=== PATIENT | male | born 1945 | race African-American/Black ===

== ENCOUNTER 2020-10-04 06:09 | Day surgery (SDC) | payer OTHER ==
[~2020-10-04] VITALS: Ht 182.9 cm; Wt 90.0 kg
[~2020-10-04 06:09] MED LIST: ACET325T21 PO; ASPI-630 PO; BRIM5DRO4 OU; BUDE10.2 IH; HYDROmorphone 2 MG/ML VIAL IVP PRN; ISOS30TA68 PO; IV RINGERS,LACTATED 1000ML 1,000 ML IV SCH; LATA7.5D OU; LISI20TA18 PO; MORPHINE SULFATE 2 MG/ML INJ. IVP PRN; NAPR-514 PO; NITR0.4T22 SL; PRAV40TA2 PO; PROCHLORPERAZINE 10 MG/2 ML VIAL. IVP PRN; TAMS0.4C97 PO; TIMO10DR5 OU; VENTOLIN HFA18 GM INH; fentaNYL PF VIAL 100 MCG/2 ML VIAL IVP PRN
[2020-10-04 06:21] VITALS: BP 161/106
[2020-10-04] MEDS ORDERED: BUPIVACAINE MPF 0.25% 30 ML VIAL. ONE (07:12)
[2020-10-04] MEDS ORDERED: ePHEDrine PF IN SALINE 50 MG/10 ML SYRINGE. IV ONE (07:47)
--- NOTE | 2020-10-04 07:47 | DISCH ---
DISCHARGE INSTRUCTIONS Condition on Discharge Condition on Discharge: Stable Activity After Discharge Activity Instructions for Disc: Other, see below (Avoid hard grasp, may do fine motor use such as eating writing typing) Lifting Instructions after Dis: No heavy lifting, No pulling or pushing Weight Bearing Status after Di: Non weight bearing Wound Incision Care Wound/Incision Care: Keep wound elevated, Do not change dressing (Keep dressing intact unless soiled) Contacting the DRManish after DC Call your doctor for: Concerns you may have Follow-Up Follow up with: Dr. Tong or [place] 10 days ADRIANE TONG MD Oct 04, 2020 07:47
[2020-10-04] MEDS ORDERED: fentaNYL PF VIAL 100 MCG/2 ML VIAL ONE ×2 (08:01→08:20)
[2020-10-04] MEDS ORDERED: SEVOFLURANE 16 TO 30 MINUTES. IH ONE (08:01)
--- NOTE | 2020-10-04 08:03 | PDOC4 ---
Operative Note Operative Note Date of surgery: 10/04/2020 Preoperative diagnosis: Right carpal tunnel syndrome Postoperative diagnosis: Same with moderate median nerve compression Operative procedure: Right carpal tunnel release Surgeon: Alycia Dry Dip Worker: Finn clements Anesthesia: General Estimated blood loss: 1 cc Complications: None Operative indications: Please see Mr. Moody orthopedic clinic note for detailed operative indications and note that we covered that this procedure only takes pressure off the compressed nerve and relief may be incomplete as it is dependent on healing. There is also possibility of nerve or blood vessel damage infection medical or other anesthetic complications among others. He agrees to proceed with surgical evaluation and treatment Operative text: Patient was identified procedure verified patient placed in the supine position on the operating table. After adequate amounts of general anesthesia were administered the right upper extremity was prepped and draped in standard sterile fashion with an upper arm tourniquet. After timeout was performed patient procedure identified and verified the right upper extremity was exsanguinated by Esmarch bandage tourniquet inflated to 300 mmHg and a longitudinal incision was made just distal to the distal wrist crease dissection carried out down to the transverse carpal ligament which was divided under direct vision with scalpel and tenotomy scissors. Full release was verified both visually and palpably. Thorough irrigation carried out normal saline solution, incision was closed with nylon suture in vertical mattress fashion. Sterile soft dressings were applied patient was returned to recovery room stable condition having tolerated procedure well. Fingers were noted be warm pink on deflation of the tourniquet. Finn clements assisted in patient positioning prepping draping retraction closure and dressings ADRIANE PRATT MD Oct 04, 2020 08:03
[2020-10-04] MEDS ORDERED: PROCHLORPERAZINE 10 MG/2 ML VIAL. ONE (08:21)
[2020-10-04 08:38] VITALS: BP 134/96
[2020-10-04] MEDS ORDERED: ACETAMINOPHEN 325 MG TABLET. PO ONE (08:55)
[2020-10-04] MEDS ORDERED: LIDOCAINE 2% PF 5 ML VIAL. ONE (08:56)
[2020-10-04] MEDS ORDERED: PROPOFOL 10 MG/ML (20ML) VIAL. IV ONE (08:56)
[2020-10-04] MEDS ORDERED: ONDANSETRON PF 4 MG/2 ML VIAL. ONE (08:56)
[2020-10-04] MEDS ORDERED: DEXAMETHASONE SOD PHOS 4 MG/ML VIAL ONE (08:56)
[2020-10-04] MEDS ORDERED: ACETAMINOPHEN 500 MG TABLET PO PRN (09:00)
== END 2020-10-04 09:02 | disposition home or self-care (01) ==
LOC: SURG 06:09
PROVIDERS: ATTEND Orthopaedic Surgery
DX: G56.01 Carpal tunnel syndrome, right upper limb (principal); I10 Essential (primary) hypertension; E78.00 Pure hypercholesterolemia, unspecified; J44.9 Chronic obstructive pulmonary disease, unspecified; M19.90 Unspecified osteoarthritis, unspecified site; Z79.82 Long term (current) use of aspirin; Z79.899 Other long term (current) drug therapy; Z87.891 Personal history of nicotine dependence; Z98.890 Other specified postprocedural states
CPT/HCPCS: 64721; A4930; J0690; J0780; J1100; J2405; J2704; J3010; J3490; A4657; A6452

== ENCOUNTER 2021-03-27 06:03 | Day surgery (SDC) | payer OTHER ==
[~2021-03-27] VITALS: Ht 182.9 cm; Wt 90.0 kg
[2021-03-27 06:10] VITALS: BP 151/83
[2021-03-27] MEDS ORDERED: fentaNYL PF VIAL 100 MCG/2 ML VIAL ONE (06:59)
[2021-03-27] MEDS ORDERED: LIDOCAINE 1% PF 5 ML VIAL. ONE (06:59)
[2021-03-27] MEDS ORDERED: PROPOFOL 10 MG/ML (20ML) VIAL. IV ONE (06:59)
[2021-03-27] MEDS ORDERED: ONDANSETRON PF 4 MG/2 ML VIAL. ONE ×2 (07:00→07:41)
[2021-03-27] MEDS ORDERED: DEXAMETHASONE SOD PHOS 4 MG/ML VIAL ONE (07:00)
[2021-03-27] MEDS ORDERED: SUCCINYLCHOLINE 200 MG/10 ML VIAL. ONE (07:04)
[2021-03-27] MEDS ORDERED: ROCURONIUM 100 MG/10 ML VIAL. ONE (07:05)
[2021-03-27] MEDS ORDERED: GLYCOPYRROLATE 1 MG/5 ML VIAL. ONE (07:07)
[2021-03-27] MEDS ORDERED: BUPIVACAINE MPF 0.25% 30 ML VIAL. ONE (07:20)
[2021-03-27] MEDS ORDERED: SEVOFLURANE 16 TO 30 MINUTES. IH ONE (07:41)
--- NOTE | 2021-03-27 07:49 | PDOC4 ---
OPERATIVE NOTE Date: Date: Mar 27, 2021 Pre-Op Diagnosis: Carpal tunnel syndrome chronic left Post-Op Diagnosis: Same Procedure Performed: Carpal tunnel release left Surgeon: Lul Anesthesia Type: General Blood Loss: 5 cc Specimans Obtained: None Findings: See dictation Complications: None RYLEY FOURNIER Jr., DO Mar 27, 2021 07:49
--- NOTE | 2021-03-27 07:52 | DISCH ---
DISCHARGE INSTRUCTIONS Condition on Discharge Condition on Discharge: Stable Activity After Discharge Activity Instructions for Disc: Avoid exertion, Other, see below Lifting Instructions after Dis: No heavy lifting, No pulling or pushing, Do not lift >10 pounds Weight Bearing Status after Di: Non weight bearing Wound Incision Care Wound/Incision Care: Keep wound elevated, Do not change dressing Other wound/incision instructi: May change dressings postoperative day #7 Contacting the DRManish after DC Call your doctor for: Concerns you may have Follow-Up Follow up with: 21 days RYLEY FOURNIER Jr. DO Mar 27, 2021 07:52
--- NOTE | 2021-03-27 07:58 | HP ---
DATE OF SERVICE: 03/27/2021 ADMIT DATE: 03/27/2021 HISTORY OF PRESENT ILLNESS: He is a 74-year-old male here today with complaints of carpal tunnel syndrome, which is chronic in nature. He has already had the right carpal tunnel release after an EMG noted the significant amount of changes in regard to the median nerve. He had numbness and tingling and severe signs of carpal tunnel syndrome bilaterally for the longest period of time, but the numbness, tingling and pain in issues have weakness with pinch continued for significant amount of time before he was seen in the office of Orthopedics. He was noted at that time to have this continuing despite cock-up wrist splints, modification of activities, etc. PAST MEDICAL HISTORY: Remarkable for DJD of the cervical spine, hypertension, hyperlipidemia, COPD, glaucoma, asthma. PAST SURGICAL HISTORY: Right carpal tunnel release. FAMILY HISTORY: Noncontributory. SOCIAL HISTORY: The patient is in [facility]. REVIEW OF SYSTEMS: Unremarkable other than the numbness and tingling in the left upper extremity. PHYSICAL EXAMINATION: He is alert and oriented and well nourished and well hydrated this point. No problems in regards to the chest, the lungs or the neurologic exam other than the decreased sensation in the left median nerve distribution with a positive Tinel's and a positive Phalen's test. He has decreased sensation in the median distribution only weakness with pinch. No weakness of merchandise associate or loss of sensation in the ulnar distribution at all. Vascular status is fully intact. IMPRESSION: Carpal tunnel syndrome, left. PLAN: At this time, he understands the risks, complications as well as benefits and expectations of surgery, postoperative protocol and followup. We will get him set up for carpal tunnel release as soon as possible. ANGEL DELA CRUZ: Reji TID: [id number]
--- NOTE | 2021-03-27 07:58 | OP ---
DATE OF SURGERY: 03/27/2021 PREOPERATIVE DIAGNOSIS: Carpal tunnel syndrome, chronic left. POSTOPERATIVE DIAGNOSIS: Carpal tunnel syndrome, chronic left. PROCEDURE: Carpal tunnel release, left. SURGEON: Santiago Mccarty Jr, DO. MOTOR VEHICLE ESCORT DRIVER: Finn Hurtado. ANESTHESIA: General. COMPLICATIONS: None. ESTIMATED BLOOD LOSS: 5 mL. DESCRIPTION OF PROCEDURE: The patient was taken to the operative suite, given a general anesthetic. Left upper extremity was then prepped and draped in a sterile fashion. Incision was made through skin and subcutaneous tissues down through the palmar fascia to identify the transverse carpal ligament. This was therefore released. The nerve was inspected and noted to be completely intact. The wound was then thoroughly irrigated and reapproximated in an interrupted fashion using 3-0 nylon. Sterile dressing was applied. The patient was then taken from the operative bed to the postoperative bed, taken to the PACU in stable condition. SONYA DR: Reji TID: [id number]
[2021-03-27 08:30] VITALS: BP 126/60
== END 2021-03-27 08:35 | disposition home or self-care (01) ==
LOC: SURG 06:03 → EEVIPCON 07:30 → SURG 08:35
PROVIDERS: ATTEND Orthopaedic Surgery
DX: G56.02 Carpal tunnel syndrome, left upper limb (principal); I10 Essential (primary) hypertension; E78.5 Hyperlipidemia, unspecified; J44.9 Chronic obstructive pulmonary disease, unspecified; E78.00 Pure hypercholesterolemia, unspecified; M19.90 Unspecified osteoarthritis, unspecified site; Z87.891 Personal history of nicotine dependence; Z79.82 Long term (current) use of aspirin; Z79.899 Other long term (current) drug therapy; Z98.890 Other specified postprocedural states
CPT/HCPCS: 64721; A4930; J0330; J0690; J1100; J2405; J2704; J3010; J3490; A4657; A6452